=== PATIENT | male | born 1945 | race Caucasian/White ===

== ENCOUNTER 2017-01-24 09:39 | Observation (INO) | payer MEDICARE ==
[~2017-01-24] VITALS: Ht 175.3 cm; Wt 82.8 kg
[~2017-01-24 09:39] MED LIST: HYDR25TA6 PO; METO-407 PO
[2017-01-24] MEDS ORDERED: LISI20TA11 PO (10:32)
[2017-01-24] MEDS ORDERED: LOSA25TA5 PO (10:32)
[2017-01-24] MEDS ORDERED: AMLO5TAB4 PO (10:33)
--- NOTE | 2017-01-24 10:38 | RADRPT ---
PROCEDURE: Chest x-ray CLINICAL INDICATION: Stroke TECHNIQUE: Chest single view COMPARISON: None FINDINGS: There is mild cardiomegaly and an sclerotic aortic calcification. The pulmonary vessels are normal i n caliber. The lungs are clear. The costophrenic angles are sharp. The visualized bony thorax is unremarkable. IMPRESSION: No acute cardiopulmonary disease. Mild cardiomegaly and atherosclerotic aortic calcification. RPTAT: HH .Lewis Murguia MD, MD Date Time Electronically viewed and signed by .Lewis Murguia MD, MD on 01/24/2017 10:38 .W/
[2017-01-24 10:52] LABS: BASOPHIL # 0.1 10^3/ul (0.0-0.1); EOSINOPHILS # 0.2 10^3/ul (0.0-0.5); EOSINOPHILS % 4.5 % (0.0-7.0); HEMATOCRIT 48.9 % (42.0-52.0); HEMOGLOBIN 15.6 g/dl (14.0-18.0); MEAN CORPUSCULAR HEMOGLOBIN 26.6 pg (29.0-33.0); MEAN CORPUSCULAR HGB CONC 31.9 g/dl (32.0-37.0); MEAN CORPUSCULAR VOLUME 83.3 fl (82.0-101.0); MEAN PLATELET VOLUME 10.4 fl (7.4-10.4); MONOCYTE # 0.5 10^3/ul (0.3-0.9); MONOCYTES % 10.4 % (0.0-11.0); NEUTROPHIL # 2.2 10^3/ul (1.6-7.5); NEUTROPHILS % 43.7 % (39.0-77.0); PLATELET COUNT 240 10^3/UL (140-415); RED BLOOD COUNT 5.87 10^6/ul (4.70-6.10); RED CELL DISTRIBUTION WIDTH 13.2 % (11.5-14.5); WHITE BLOOD COUNT 4.9 10^3/ul (4.8-10.8)
[2017-01-24 11:10] LABS: INR 0.93; PROTIME 12.5 Sec (12.2-14.2)
[2017-01-24 11:11] LABS: PARTIAL THROMBOPLASTIN TIME 32.2 Sec (25.0-35.0)
[2017-01-24 11:13] LABS: ALANINE AMINOTRANSFERASE 33 IU/L (13-69); ALBUMIN 4.7 g/dl (3.3-4.9); ALBUMIN/GLOBULIN RATIO 1.51; ALKALINE PHOSPHATASE 98 IU/L (42-121); ANION GAP 14 (8-16); ASPARTATE AMINO TRANSFERASE 27 IU/L (15-46); BILIRUBIN,INDIRECT 0.5 mg/dl (0-1.1); BILIRUBIN,TOTAL 0.5 mg/dl (0.2-1.3); BLOOD UREA NITROGEN 15 mg/dl (7-20); CALCIUM 9.5 mg/dl (8.4-10.2); CARBON DIOXIDE 27 mmol/L (21-31); CHLORIDE 100 mmol/L (97-110); CHOL/HDL RATIO 3.6 RATIO; CHOLESTEROL 193 mg/dl (100-200); CREATININE 0.97 mg/dl (0.61-1.24); GLUCOSE 143 mg/dl (70-220); HDL CHOLESTEROL 53 mg/dl (31-75); POTASSIUM 4.1 mmol/L (3.5-5.1); SODIUM 137 mmol/L (135-144); TOTAL PROTEIN 7.8 g/dl (6.1-8.1); TRIGLYCERIDES 160 mg/dl (0-149)
--- NOTE | 2017-01-24 11:23 | RADRPT ---
PROCEDURE: CT Brain without contrast. CLINICAL INDICATION: Neurological deficit. Possible stroke. Headache, right blurred vision. TECHNIQUE: A CT of the brain was performed on multidetector high-resolution CT scanner utilizing a xial sections from the skull base through the vertex without contrast. The scan was reviewed in sof t tissue brain and high frequency resolution bone algorithm windows. Images were reviewed on a high -resolution PACS workstation. One or more the following does reduction techniques were utilized: Aut omated exposure control, adjustment of the mA/ or kV according to patient's size, or use of iterativ e reconstruction technique. The exam CTDI = 43.58 mGy and the DLP = 630.2 mGy-cm. COMPARISON: Brain CT 07/21/2012. Brain MRI 07/22/2012. FINDINGS: The ventricles and sulci are mildly prominent indicative of volume loss. There is no intracranial h emorrhage, mass effect or midline shift. No abnormal intra-axial or extra-axial fluid collections a re seen. The lira/white matter differentiation is preserved. There are mild scattered foci of hypoattenuation in the white matter, which are nonspecific in etiol ogy but likely reflect chronic small vessel ischemic changes. There are mild intracranial vascular calcifications consistent with atherosclerosis. The visualized paranasal sinuses are essentially desirae ar. IMPRESSION: 1. No acute intracranial hemorrhage, transcortical infarction or mass effect. Please note MRI is mo re sensitive for detection of acute ischemia and can be obtained as clinically warranted. 2. Mild intracranial atherosclerosis and chronic small vessel ischemic changes. 3. Mild generalized cerebral volume loss. RPTAT: UU .Regina Vela MD, MD Date Time Electronically viewed and signed by .Regina Vela MD, MD on 01/24/2017 11:22 .N/
[2017-01-24 11:26] LABS: TROPONIN-I < 0.012 ng/ml (0.00-0.12)
--- NOTE | 2017-01-24 11:48 | ERA ---
ER Documentation Chief Complaint Date/Time DATE: 01/24/17 TIME: 11:45 Chief Complaint mclaughlin, double vision x6 days. hx vague, opthom states stroke, pmd no orders. HPI 71-year-old male presents to the emergency department with his family complaining of double vision, vertiginous dizziness and a headache for the last 6 days. Patient states his last known normal well time was approximately 6 days ago but he does not remember the time. He states he began having vertiginous dizziness and diplopia. He saw his eye doctor because he thought this might be related to a cataract. His eye doctor informed him that this was unlikely to be cataract related and we was concerned about a stroke. He presents here to our emergency department now 6 days into his symptoms. He states he has ongoing diplopia when he looks to the side mostly on the right side. He reports no other focal weakness or numbness. He states his headache is mild to moderate. He reports no nausea or vomiting, fevers or chills. ROS All systems reviewed and are negative except as per history of present illness. Medications Home Meds Reported Medications Amlodipine Besylate* (Norvasc*) 5 Mg Tablet, 5 MG PO DAILY, TAB 01/24/17 Losartan Potassium* (Losartan Potassium*) 25 Mg Tablet, 25 MG PO DAILY, TAB 01/24/17 Lisinopril* (Lisinopril*) 20 Mg Tablet, 20 MG PO DAILY, #30 TAB 01/24/17 Discontinued Reported Medications Hydrochlorothiazide (Hydrochlorothiazide) 25 Mg Tablet, 25 MG PO DAILY 07/21/12 Metoprolol Tartrate* (Lopressor*) 100 Mg Tablet, 100 MG PO DAILY 07/21/12 Allergies Allergies: Coded Allergies: No Known Allergy (Unverified , 01/24/17) PMhx/Soc History of Surgery: No Anesthesia Reaction: No Hx Neurological Disorder: No Hx Respiratory Disorders: No Hx Cardiac Disorders: Yes (HTN) Hx Psychiatric Problems: No Hx Miscellaneous Medical Probl: Yes (glaucoma , arthritis ) Hx Alcohol Use: Yes (35YEARS AGO) Hx Substance Use: No Hx Tobacco Use: No Smoking Status: Never smoker FmHx non-Contributory for chief complaint Physical Exam Vitals Vital Signs Date Time Temp Pulse Resp B/P Pulse Ox O2 Delivery O2 Flow Rate FiO2 01/24/17 10:33 68 15 143/73 97 Room Air 01/24/17 09:44 97.3 79 20 152/77 97 Physical Exam GENERAL: The patient is well developed and appropriate for usual state of health in no apparent distress HEENT: Pupils equal, round, and reactive to light. EOMI. There is no scleral icterus. NECK: C-spine is soft and supple, there is no meningismus. There is no cervical lymphadenopathy. LUNGS: Clear to auscultation bilaterally. There are no rales, wheezes or rhonchi. HEART: Regular rate and rhythm, no murmurs, clicks, rubs or gallops. ABDOMEN: Soft, non-tender, non-distended. There are bowel sounds in all four quadrants. No rebound or guarding. EXTREMITIES: There is no peripheral cyanosis or edema. No focal swelling or erythema. NEURO: Patient is awake, alert, oriented. Normal speech pattern. Normal fluency. No visual field cut deficits. Patient has a peripheral right 4th nerve palsy. Patient has a slightly ataxic finger to nose on the right side. The left side appears normal. The remainder of the cranial nerves as well as motor and sensory examination appeared to be normal. SKIN: There is no apparent rash or petechiae. HEME/LYMPHATIC: There is no evidence of excessive bruising or lymphedema. PSYCHIATRIC: The patient does not appear anxious or depressed. Result Diagram: 01/24/17 1030 01/24/17 1030 Results 24 hrs Laboratory Tests Test 01/24/17 10:30 White Blood Count 4.910^3/ul Red Blood Count 5.8710^6/ul Hemoglobin 15.6g/dl Hematocrit 48.9% Mean Corpuscular Volume 83.3fl Mean Corpuscular Hemoglobin 26.6pg Mean Corpuscular Hemoglobin Concent 31.9g/dl Red Cell Distribution Width 13.2% Platelet Count 33219^3/UL Mean Platelet Volume 10.4fl Neutrophils % 43.7% Lymphocytes % 40.0% Monocytes % 10.4% Eosinophils % 4.5% Basophils % 1.0% Nucleated Red Blood Cells % 0.0/100WBC Neutrophils # 2.210^3/ul Lymphocytes # 2.010^3/ul Monocytes # 0.510^3/ul Eosinophils # 0.210^3/ul Basophils # 0.110^3/ul Nucleated Red Blood Cells # 0.010^3/ul Prothrombin Time 12.5Sec Prothrombin Time Ratio 1.0 INR International Normalized Ratio 0.93 Activated Partial Thromboplast Time 32.2Sec Sodium Level 137mmol/L Potassium Level 4.1mmol/L Chloride Level 100mmol/L Carbon Dioxide Level 27mmol/L Anion Gap 14 Blood Urea Nitrogen 15mg/dl Creatinine 0.97mg/dl Glucose Level 143mg/dl Calcium Level 9.5mg/dl Total Bilirubin 0.5mg/dl Direct Bilirubin 0.00mg/dl Indirect Bilirubin 0.5mg/dl Aspartate Amino Transf (AST/SGOT) 27IU/L Alanine Aminotransferase (ALT/SGPT) 33IU/L Alkaline Phosphatase 98IU/L Troponin I < 0.012ng/ml Total Protein 7.8g/dl Albumin 4.7g/dl Globulin 3.10g/dl Albumin/Globulin Ratio 1.51 Triglycerides Level 160mg/dl Cholesterol Level 193mg/dl LDL Cholesterol, Calculated 108mg/dl HDL Cholesterol 53mg/dl Cholesterol/HDL Ratio 3.6RATIO Current Medications Medications (Trade) Dose Ordered Sig/Brennen Route PRN Reason Start Time Stop Time Status Last Admin Dose Admin Aspirin (Aspirin) 325 mg ONCE ONCE PO 01/24/17 12:00 01/24/17 12:01 01/24/17 11:36 Procedures/MDM Patient was taken to a room, seen and evaluated. Comfort measures were initiated. Diagnostic tests were ordered and reviewed. 3 LEAD RHYTHM STRIP: Normal sinus rhythm without ectopy 12 lead EKG interpreted by myself: Rate/rhythm: Normal sinus rhythm [place]/intervals: Normal Ischemia: Nonspecific ST and T-wave changes with no ST elevation Impression: Nonspecific EKG RADIOLOGY: reviewed with the radiologist CONSULTATION: hospitalist was notified for admission REEVALUATION: Patient remained neurologically unchanged from initial presentation MEDICAL DECISION MAKING: Patient presents with acute neurologic changes concerning for a stroke. Critical care time:> 35 minutes Critical care has included ongoing critical monitoring of neurologic as well as hemodynamic status. Multiple consultations including: Code stroke: Not appropriate given timing Radiology: No hemorrhage TPA: not a candidate as last known well time > 4.5 hours Intravascular decision making: Not appropriate given last known well time greater than 1 day Departure Diagnosis: Primary Impression: Stroke Condition: JACK Onela Jan 24, 2017 11:48
[2017-01-24] MEDS ORDERED: ASPIRIN 325 MG TAB PO ONE (12:00)
[2017-01-24 12:27] LABS: ADD UMIC NO; UR ASCORBIC ACID NEGATIVE (NEGATIVE); UR BILIRUBIN (Dip) NEGATIVE (NEGATIVE); UR BLOOD (Dip) NEGATIVE (NEGATIVE); UR CLARITY CLEAR (CLEAR); UR COLOR YELLOW (YELLOW); UR GLUCOSE (Dip) NEGATIVE (NEGATIVE); UR KETONES (Dip) NEGATIVE (NEGATIVE); UR LEUKOCYTE ESTERASE (Dip) NEGATIVE Leu/ul (NEGATIVE); UR NITRITE (Dip) NEGATIVE (NEGATIVE); UR SPECIFIC GRAVITY (Dip) 1.013 (1.003-1.030); UR TOTAL PROTEIN (Dip) NEGATIVE (NEGATIVE); UR UROBILINOGEN (Dip) NEGATIVE (NEGATIVE)
[2017-01-24 13:00] LABS: BARBITURATES Negative (NEGATIVE); BENZODIAZEPINES Negative (NEGATIVE); COCAINE Negative (NEGATIVE); OPIATES Negative (NEGATIVE)
[2017-01-24 13:27] LABS: CANNABINOIDS Negative (NEGATIVE)
[2017-01-24] MEDS ORDERED: ONDANSETRON 4 MG INJ IV PRN (14:00)
--- NOTE | 2017-01-24 14:37 | RADRPT ---
PROCEDURE: US Carotids. CLINICAL INDICATION: bruit , headache TECHNIQUE: Multiple sonographic of the carotid bifurcation region and vertebral arteries were obta ined utilizing lira scale, duplex and color-flow imaging. The images were reviewed on a PACS worksta tion. COMPARISON: No prior studies are available for comparison. FINDINGS: Evaluation of the right carotid bifurcation region reveals no significant calcific atherosclerotic d isease. Evaluation of the left carotid bifurcation region reveals no significant calcific atherosclerotic di sease. There is antegrade flow within the vertebral arteries bilaterally. RIGHT CAROTID MEASUREMENTS: Common Carotid Drfidq00.9 (cm/sec) Internal Carotid Artery - .9 (cm/sec) Internal Carotid Artery - mid27.1 (cm/sec) Internal Carotid Artery - ysebdq40.6 (cm/sec) Internal Carotid/Common Carotid0.71 LEFT CAROTID MEASUREMENTS: Common Carotid Uknbkw97.1 (cm/sec) Internal Carotid Artery - irydmrcf81.7 (cm/sec) Internal Carotid Artery - mid32 (cm/sec) Internal Carotid Artery - .8 (cm/sec) Internal Carotid/Common Carotid0.77 RPTAT: AA IMPRESSION: No evidence for hemodynamically significant stenosis in the bilateral internal carotid arteries - va lidated velocity measurements with angiographic measurements, velocity criteria are extrapolated fro m diameter data as defined by the Society of Radiologists in Ultrasound Consensus Conference Radiolo gy 2003; 229;340-346. This study does indirectly reference the measurement of the distal ICA diamet er as the denominator for stenosis measurement. Normal antegrade flow in the vertebral arteries bilaterally. .Carlos Eduardo Cannon MD, Date Time Electronically viewed and signed by .Carlos Eduardo Cannon MD, MD on 01/24/2017 14:37 .S/
[2017-01-24 14:54] VITALS: TEMP 98.4
[2017-01-24] MEDS: LISINOPRIL 20 MG TAB PO SCH (15:20)
[2017-01-24] MEDS: AMLODIPINE 5 MG TAB PO SCH (15:20)
[2017-01-24] MEDS: LOSARTAN 25 MG TAB PO SCH (15:21)
--- NOTE | 2017-01-24 16:46 | RADRPT ---
PROCEDURE: MR Brain without contrast. CLINICAL INDICATION: Headaches, nausea. Double vision. TECHNIQUE: An MRI of the brain was performed on a GE short bore 3.0 stefanie scanner utilizing the fo llowing sequences: Sagittal T1 and axial weighted, axial T2 weighted, axial diffusion weighted (EPI technique [id number]) with axial ADC mapping, and axial FLAIR. Additionally, coronal GRE and axial T2 thin-slice images through the brainstem sequences were performed. COMPARISON: Head CT 01/24/2017 and MRI brain 07/22/2012. FINDINGS: No diffusion weighted abnormalities are seen to suggest the presence of acute ischemia or recent inf arct. No GRE susceptibility artifact is evident to suggest the presence of blood degradation produc ts. There is no intracranial hemorrhage, mass effect, or midline shift. No extra-axial fluid colle ction is seen. There is mild generalized age appropriate volume loss. A few scattered small foci o f increased T2 weighted/FLAIR signal intensity are seen in the primarily in the deep white matter, n onspecific in appearance. The signal intensity is normal throughout the brainstem and cerebellum. Normal flow voids are visible the proximal and cranial arteries and dural sinuses, indicating patenc y. There is a small hemangioma in the left parietal bone. Small mucous retention cyst versus polyp are seen in the right maxillary sinus. IMPRESSION: 1. No evidence of acute infarct. 2. A few scattered foci of increased T2 weighted/FLAIR signal intensity seen primarily in the deep white matter, nonspecific in appearance though perhaps reflective of complicated migraines, hyperten sive microvascular ischemic disease, or sequela from prior traumatic or inflammatory insults. RPTAT: BB .Arie Weinstein MD, Date Time Electronically viewed and signed by .Arie Weinstein MD, MD on 01/24/2017 16:46 .O/
[2017-01-24] MEDS: ACETAMINOPHEN 325 MG TAB PO PRN ×2 (19:28→23:06)
[2017-01-24 20:04] VITALS: Ht 175.3 cm; Wt 82.8 kg
[2017-01-24 20:10] VITALS: PULSE 85
[2017-01-24 20:19] VITALS: BP 160/78; RESP 19
[2017-01-24] MEDS: MECLIZINE 25 MG TAB PO SCH (21:05)
--- NOTE | 2017-01-24 21:10 | HP ---
DATE OF ADMISSION: 01/24/2017 CHIEF COMPLAINT: "I have been dizzy and have double vision on my right side." HISTORY OF PRESENT ILLNESS: The patient is a very pleasant, 71- year-old, male, who presents to the Emergency Department with a 1-day history of dizziness and double vision on the right side of his face. He has a history of hypertension and was in his usual state of health approximately 3-4 days ago. He presented to his primary care physician with the chief complaint of dizziness and double vision. He was referred to an cigarette book maker. The cigarette book maker stated that his double vision is not from an issue with his eyes, and recommended he go to the Emergency Department for further evaluation treatment. In the Emergency Department, the patient had the aforementioned symptoms and underwent a CT scan of the brain which revealed no acute intracranial hemorrhage, transcortical infarction or mass effect. He had mild intracranial atherosclerosis and chronic small vessel ischemic changes, as well as mild generalized cerebral volume loss. The patient also was able to have an MRI in the ER that revealed no evidence of acute infarct and diffuse scattered foci of increased T2 weighted FLAIR in signal intensity seen primarily deep white matter, nonspecific in appearance or perhaps reflective of complicated migraines, hypertensive microvascular ischemic disease, or sequelae from prior traumatic or inflammatory insult. Of note, the patient denies any prior traumatic or inflammatory insult. The patient's daughter was at the bedside and translated during the interview of history of present illness. The patient has no other deficits whatsoever, other than his dizziness and double vision. He has no focal, motor, or sensory weakness that he complained of. He was placed on the telemetry unit for observation and management. ALLERGIES: NO KNOWN DRUG ALLERGIES. MEDICATIONS: 1. Norvasc 5 mg once a day. 2. Losartan 25 mg once daily. 3. Ibuprofen 600 mg 3 times a day. 4. Lisinopril 40 mg in the morning and 20 mg at bedtime. PAST SURGICAL HISTORY: The patient has had a blepharoplasty surgery approximately 2-3 months ago. PAST MEDICAL HISTORY: Hypertension, osteoarthritis, and cataracts. FAMILY HISTORY: Essentially noncontributory. SOCIAL HISTORY: The patient lives in the [facility] with his family. He denies alcohol and tobacco use. REVIEW OF SYSTEMS: Negative except as stated in the history of present illness. PHYSICAL EXAMINATION: VITAL SIGNS: Current blood pressure is elevated 157/88, pulse rate of 62, respiratory rate of 17. Oxygen saturation is 98 percent on room air. His temperature is 98.4. HEENT: Normocephalic, atraumatic. Extraocular intact. His pupils are equal, round, react to light and accommodation. Oropharynx was clear. No JVD was noted. No thyromegaly was noted. CARDIOVASCULAR: Regular rate and rhythm without appreciable murmurs, rubs, or gallops. LUNGS: His lungs are clear to auscultation bilaterally without rales, rhonchi. No rales, rhonchi, or crackles. ABDOMEN: Abdomen is soft, nontender, nondistended. Normal active bowel sounds present all 4 quadrants. EXTREMITIES: No clubbing, cyanosis, or edema. NEUROLOGIC: He is alert, oriented x4. Cranial II-XII grossly intact. Strength and sensation is grossly intact. No focal deficits were noted in his upper or lower extremities. He did, however, have diplopia on the right visual field. He did not have difficulty in the left visual field. With each eye a covered, the patient did not exhibit double vision the right hemisphere. This only occurred when both eyes were focusing on the right hemispheric/visual field. His [id number] is intact and gait was not tested. LABORATORY: White count is 4.9, hemoglobin 15.6, hematocrit of 48.9, platelet count of 240,000. Potassium was 4.1, chloride 100, sodium 137, bicarb 27, anion gap 14, BUN 15, creatinine 0.7, glucose 143, hemoglobin A1c 5.8, calcium 9.5, bilirubin 0.5, AST 27, ALT 33, alkaline phosphatase 98. Troponin less than 0.012. Total protein 7.8, albumin 4.7, globulin 3.1, triglycerides mildly elevated at 168, cholesterol 193, HDL 53, LDL 108, and cholesterol to HDL ratio was 3.69. Toxicology screen negative. UA negative, with specific gravity 1.013. PT 12.5, INR 0.93, PTT 32.2. IMAGING: Chest x-ray revealed mild aortic atherosclerosis and cardiomegaly with no acute cardiopulmonary disease. IMPRESSION: The patient is a very pleasant 71-year-old gentleman who presents with dizziness and difficulty in the right visual field. This has been going on for a few days. He presented to the Emergency Department with the aforementioned symptoms and was placed on aspirin. Dr. Ross has been consulted, and he will evaluate the patient in consultation. At this point the patient will also get a carotid duplex, 2D echocardiogram as well as possible CT angiogram of the brain. This will help evaluate for chronic small vessel disease. I doubt this is an embolic event. However, we will monitor patient on telemetry for arrhythmias as well as other reasons for his symptoms. I will give her meclizine for his dizziness and restart his medications to achieve better blood pressure control. Further treatment recommendations will made based on the patient's symptomology. Dictated By: Meir Ramos MD /antoine/aimee /Document#: [id number]
[2017-01-24 23:53] VITALS: BP 135/75; RESP 20
[2017-01-25] VITALS (12 sets, daily range): BP systolic 121–136; BP diastolic 70–80; PULSE 58–89; RESP 16–19
[2017-01-25] MEDS: AMLODIPINE 5 MG TAB PO SCH (08:15)
[2017-01-25] MEDS: ASPIRIN (EC) 325 MG TAB PO SCH (08:15)
[2017-01-25] MEDS: MECLIZINE 25 MG TAB PO SCH ×3 (08:15→20:53)
[2017-01-25] MEDS: LOSARTAN 25 MG TAB PO SCH (08:15)
[2017-01-25] MEDS: LISINOPRIL 20 MG TAB PO SCH (08:15)
--- NOTE | 2017-01-25 11:56 | CONS ---
Date/Time of Note Date/Time of Note DATE: 01/25/17 TIME: 11:48 Assessment/Plan Assessment/Plan Chief Complaint/Hosp Course 71 year old male with history of HTN, HLD, DM p/w double vision for over 1 day headache, dizziness. MRI Brain negative for acute process shows chronic microvascular changes. Exam suggestive of Right palsy. possible MRI negative brainstem stroke involving lillie. Recommendations: repeat MRI Brain w/o contrast MRA Head w/o contrast carotid duplex is negative HBA1C 5.8% under control LDL: 108 started Lipitor 40 mg qhs continue ASA daily baseline ECHO Meclizine for vertigo PT/OT/Speech eval will follow Problems: Consultation Date/Type/Reason Admit Date/Time Jan 24, 2017 at 13:35 Date of Consultation: Jan 24, 2017 Type of Consultation: Neurology Reason for Consultation eval for CVA Referring Provider: CORBY LEA Hx of Present Illness 71 year old male with history of HTN, HLD, DM, vertigo p/w dizziness and double vision involving the right visual field for the past day. He had seen an moth exterminator for eval suggested he come to the ER for further evaluation. CTH showed mild intracranial athero, chronic small vessel changes. MRI Brain with scattered foci T2 FLAIR changes. He c/o also of headache right side of his head, no facial weakness no dysarthria, no focal weakness in arms or legs. dizziness blurred vision right side of his vision headache Past Medical History per HPI Social History Smoking Status: Never smoker Exam/Review of Systems Vital Signs Vitals Vital Signs Date Time Temp Pulse Resp B/P Pulse Ox O2 Delivery O2 Flow Rate FiO2 01/25/17 11:33 97.7 66 16 124/70 94 01/24/17 19:29 Room Air Intake and Output 01/24/17 01/24/17 01/25/17 14:59 22:59 06:59 Intake Total 480 ml Balance 480 ml Exam awake and alert oriented to self hospital follows all commands no aphasia CN: vision intact no visual field cuts, unable to completely abduct right eye fully on right lateral gaze Right nerve palsy present c/o double vision, no facial asymmetry palate upgoing uvula midline scm/trap intact Motor: 5/5 throughout UE and LE Sensory intact throughout Coordination no ataxia Reflexes 2+ throughout toes down Results Result Diagram: 01/24/17 1030 01/24/17 1030 Results 24 hrs Laboratory Tests Test 01/24/17 11:50 Urine Color YELLOW Urine Clarity CLEAR Urine pH 7.0 Urine Specific [place] 1.013 Urine Ketones NEGATIVE Urine Nitrite NEGATIVE Urine Bilirubin NEGATIVE Urine Urobilinogen NEGATIVE Urine Leukocyte Esterase NEGATIVE Urine Hemoglobin NEGATIVE Urine Glucose NEGATIVE Urine Total Protein NEGATIVE Urine Opiates Screen Negative Urine Barbiturates Negative Urine Amphetamines Screen Negative Urine Benzodiazepines Screen Negative Urine Cocaine Screen Negative Urine Cannabinoids Negative Medications Medications Current Medications Ondansetron HCl (Zofran Inj) 4 mg Q6H PRN IV NAUSEA AND/OR VOMITING; Start at 14:00 Acetaminophen (Tylenol Tab) 650 mg Q4 PRN PO HEADACHE Last administered on 01/24 23:06; Admin Dose 650 MG; Start 01/24/17 at 14:00 Aspirin (Ecotrin) 325 mg DAILY PO Last administered on 01/25/17 08:15; Admin Dose 325 MG; Start 01/25/17 at 09:00 Amlodipine Besylate (Norvasc) 5 mg DAILY PO Last administered on 01/25/17 08: 15; Admin Dose 5 MG; Start 01/24/17 at 14:00 Lisinopril (Zestril) 20 mg DAILY PO Last administered on 01/25/17 08:15; Admin Dose 20 MG; Start 01/24/17 at 14:00 Losartan Potassium (Cozaar) 25 mg DAILY PO Last administered on 01/25/17 08:15 ; Admin Dose 25 MG; Start 01/24/17 at 14:00 Meclizine HCl (Antivert) 25 mg TID PO Last administered on 01/25/17 08:15; Admin Dose 25 MG; Start 01/24/17 at 21:00 NERIS LYONS MD Jan 25, 2017 11:56
--- NOTE | 2017-01-25 13:59 | PN ---
Date/Time of Note Date/Time of Note DATE: 01/25/17 TIME: 13:53 Assessment/Plan VTE Prophylaxis VTE Prophylaxis Intervention: ambulation, SCD's Lines/Catheters IV Catheter Type (from Nrsg): Saline Lock Assessment/Plan Assessment/Plan 71-year-old male with: 1. Blurry vision, headache and dizziness 24 hours, patient reports that his symptoms are improving with less dizziness and headache however he still has diplopia/blurred vision. Appreciate recommendations from neurology, patient seems to have cranial nerve palsy. Repeat MRI pending, on aspirin, blood pressure medication and statin. 2. Hypertension: Home meds resumed, monitor blood pressure. 3. Hyperlipidemia: She had to be started on statin therapy in setting of TIA versus CVA Prophylaxis: Tolerating p.o. and ambulatory. Disposition: Repeat MRI brain today, discharge planning the next 24 hours depending on neurology recommendations and findings. PT eval to complete stroke protocol. Subjective 24 Hr Interval Summary Free Text/Dictation Patient reports less dizziness and less headache however blurry vision and diplopia still ongoing. Repeat MRI brain pending Appreciate recommendations from Dr. Thomas. Exam/Review of Systems Vital Signs Vitals Vital Signs Date Time Temp Pulse Resp B/P Pulse Ox O2 Delivery O2 Flow Rate FiO2 01/25/17 12:17 62 01/25/17 11:33 97.7 16 124/70 94 01/24/17 19:29 Room Air Intake and Output 01/24/17 01/24/17 01/25/17 15:00 23:00 07:00 Intake Total 480 ml Balance 480 ml Exam Constitutional: alert, oriented, well developed Eyes: PERRL, nl sclera, other (Cranial nerve palsy) Respiratory: clear to auscultation, normal air movement Cardiovascular: nl pulses, regular rate and rhythm Gastrointestinal: non-tender, soft Musculoskeletal: nl extremities to inspection Extremities: normal pulses, other (No edema, clubbing or cyanosis) Neurological: nl mental status, nl speech, nl strength, other (Cranial nerve palsy) Results Result Diagram: 01/24/17 1030 01/24/17 1030 Medications Medications Current Medications Ondansetron HCl (Zofran Inj) 4 mg Q6H PRN IV NAUSEA AND/OR VOMITING; Start at 14:00 Acetaminophen (Tylenol Tab) 650 mg Q4 PRN PO HEADACHE Last administered on 01/24 23:06; Admin Dose 650 MG; Start 01/24/17 at 14:00 Aspirin (Ecotrin) 325 mg DAILY PO Last administered on 01/25/17 08:15; Admin Dose 325 MG; Start 01/25/17 at 09:00 Amlodipine Besylate (Norvasc) 5 mg DAILY PO Last administered on 01/25/17 08: 15; Admin Dose 5 MG; Start 01/24/17 at 14:00 Lisinopril (Zestril) 20 mg DAILY PO Last administered on 01/25/17 08:15; Admin Dose 20 MG; Start 01/24/17 at 14:00 Losartan Potassium (Cozaar) 25 mg DAILY PO Last administered on 01/25/17 08:15 ; Admin Dose 25 MG; Start 01/24/17 at 14:00 Meclizine HCl (Antivert) 25 mg TID PO Last administered on 01/25/17 12:44; Admin Dose 25 MG; Start 01/24/17 at 21:00 Atorvastatin Calcium (Lipitor) 40 mg HS PO ; Start 01/25/17 at 21:00 CORBY LEA Jan 25, 2017 13:59
[2017-01-25] MEDS: ACETAMINOPHEN 325 MG TAB PO PRN (20:53)
[2017-01-25] MEDS ORDERED: ZOLPIDEM 5 MG TAB PO PRN (21:00)
[2017-01-25] MEDS ORDERED: ATORVASTATIN 40 MG TAB PO SCH (21:00)
[2017-01-25] MEDS ORDERED: ARTIFICIAL TEARS 15 ML OPH BOTH EYES PRN (21:00)
--- NOTE | 2017-01-25 22:05 | RADRPT ---
PROCEDURE: MRI Brain without contrast. CLINICAL INDICATION: Neurological deficit, dizziness, double vision. TECHNIQUE: An MRI of the brain was performed utilizing the following sequences: Sagittal and axial T1 weighted, axial T2 weighted, axial diffusion weighted with ADC mapping, coronal GRE, and axial F LAIR. COMPARISON: Brain MRI 12/13/2016. FINDINGS: No diffusion weighted abnormalities are seen to suggest the presence of acute ischemia or recent inf arct. No hypointense signal abnormalities are seen on the GRE images to suggest the presence of blo od degradation products. There is no evidence of intracranial hemorrhage, mass effect, or midline s hift. No extra-axial fluid collections are seen. The ventricles and sulci are mildly enlarged indica tive of volume loss. There are minimal scattered foci of T2 FLAIR hyperintensity in the periventricular, deep, and subcor tical white matter, which are nonspecific in etiology but likely reflect chronic small vessel ischem ic changes. Small old lacunar infarcts are noted in bilateral thalami and left lentiform nucleus. No abnormal intracranial vascular flow void is noted. The visualized paranasal sinuses demonstrate s mall probable mucous retention cysts in bilateral maxillary sinuses, otherwise mild scattered mucosa l thickening. IMPRESSION: 1. No acute intracranial hemorrhage, infarction or mass. 2. Minimal chronic small vessel ischemic changes. 3. Small old lacunar infarcts are noted in bilateral thalami and left lentiform nucleus. 4. Mild generalized cerebral volume loss. RPTAT: HFN .Regina Vela MD, MD Date Time Electronically viewed and signed by .Regina Vela MD, MD on 01/25/2017 22:05 .N/
--- NOTE | 2017-01-25 22:14 | RADRPT ---
PROCEDURE: MRA Brain. CLINICAL INDICATION: Neurological deficit, dizziness, double vision. TECHNIQUE: An MRA of the brain was performed without intravenous contrast utilizing the following sequences: 3-D [id number] images through the intracranial vasculature with post processed ly l intensity projections in multiple planes. COMPARISON: Concurrent MRI of the brain. FINDINGS: The petrous, cavernous, and supraclinoid internal carotid artery segments are patent without evidenc e of significant stenosis. The proximal anterior cerebral and middle cerebral arteries are patent wi thout significant stenosis. There is predominant origin of bilateral posterior cerebral arter ies with hypoplastic bilateral P1 segments. The left intradural vertebral artery is small in calibe r and terminates as PICA, likely hypoplastic. The right intradural vertebral artery, basilar artery and posterior cerebral arteries demonstrate mild irregularity and narrowing. No aneurysms are identi fied. IMPRESSION: 1. The left intradural vertebral artery is small in caliber, likely hypoplastic. 2. Mild narrowing of the right intradural vertebral artery, basilar artery and posterior cerebral a rteries. 3. Otherwise no significant stenosis of the remainder of major intracranial arteries. RPTAT: HFN .Regina Vela MD, MD Date Time Electronically viewed and signed by .Regina Vela MD, MD on 01/25/2017 22:13 .N/
[2017-01-26] VITALS (7 sets, daily range): BP systolic 127–132; BP diastolic 71–76; PULSE 57–74; RESP 18–19
--- NOTE | 2017-01-26 08:26 | RADRPT ---
Echocardiogram Report Patient Name: AURORA YADAV Gender: Male Date: 1945 Study Date: 25-Jan-2017 [employer] Barge Mounted: Zoila [facility] Location: 518-A Ref. Physician: JOVI ALLEN Quality: Adequate Procedures: Transthoracic echocardiogram with complete 2D, M-Mode, and doppler examination. Indications: TIA. 2D/M Mode Doppler Measurement Value Normal Ranges Measurement Value Normal Ranges LVIDd 2D 4.7 3.5 - 5.6 cm AV Peak Donny 1.3 m/sec LVIDs 2D 2.9 2.1 - 4.1 cm AV Peak PG 6.0 mmHg FS 2D 38.0 % AI Peak PG 20.0 mmHg LVPWd 2D 1.3 0.6 - 1.1 cm AI Peak Donny 2.3 m/sec IVSd 2D 1.3 0.6 - 1.1 cm AI PHT 895.0 msec IVS/LVPW 2D 1.0 LVOT Peak Donny 1.2 m/sec AoR Diam 2D 3.0 2.0 - 3.7 cm LVOT Peak PG 6.0 mmHg LA/Ao 2D 1 0 - 1 MV E Peak Donny 0.7 m/sec EDV 2D 104.0 cm3 MV A Peak Donny 0.9 m/sec ESV 2D 24.9 cm3 MV E/A 0.8 LA Dimen 2D 3.8 2.3 - 4.0 cm MV Decel Time 254 msec MV E/A 0.8 TR Peak Donny 2.1 m/sec TR Peak PG 18.0 mmHg RVSP 21.0 mmHg Findings Left Ventricle: Hyperdynamic left ventricular systolic function. Normal left ventricular cavity size. Mild concentric left ventricular hypertrophy. Ejection fraction is visually estimated at 70 %. Tissue Doppler/Mitral Doppler indices are consistent with impaired relaxation (Stage I diastolic dysfunction). Right Ventricle: Normal right ventricular size. Normal right ventricular systolic function. Left Atrium: The left atrium is normal in size. Right Atrium: The right atrium is normal in size. Mitral Valve: Mild mitral leaflet calcification. Mild mitral annular calcification. Trace mitral regurgitation. Aortic Valve: Aortic sclerosis without stenosis. Mild aortic valve regurgitation. Tricuspid Valve: Normal appearance of the tricuspid valve. Estimated peak PA systolic pressure 21 mmHg. There is trace tricuspid regurgitation. Pulmonic Valve: Normal pulmonic valve appearance. There is trace pulmonic regurgitation. Pericardium: Normal pericardium with no significant pericardial effusion. Aorta: Normal aortic root. IVC: Normal size and normal respiratory collapse consistent with normal right atrial pressure. Conclusions 1.Hyperdynamic left ventricular systolic function. Normal left ventricular cavity size. Mild concentric left ventricular hypertrophy. Ejection fraction is visually estimated at 70 %. Tissue Doppler/Mitral Doppler indices are consistent with impaired relaxation (Stage I diastolic dysfunction). 2.Mild mitral leaflet calcification. Mild mitral annular calcification. Trace mitral regurgitation. 3.Aortic sclerosis without stenosis. Mild aortic valve regurgitation. 4.Normal appearance of the tricuspid valve. Estimated peak PA systolic pressure 21 mmHg. There is trace tricuspid regurgitation. 5.Normal pulmonic valve appearance. There is trace pulmonic regurgitation. 6.Normal pericardium with no significant pericardial effusion. Electronically Signed By: Chrystal Layne 26-Jan-2017 08:26:04 -0700 Patient Name: AURORA YADAV Study Date: 25-Jan-2017 [id number]
[2017-01-26] MEDS: AMLODIPINE 5 MG TAB PO SCH (09:06)
[2017-01-26] MEDS: LOSARTAN 25 MG TAB PO SCH (09:07)
[2017-01-26] MEDS: ASPIRIN (EC) 325 MG TAB PO SCH (09:07)
[2017-01-26] MEDS: MECLIZINE 25 MG TAB PO SCH ×2 (09:07→13:28)
[2017-01-26] MEDS: LISINOPRIL 20 MG TAB PO SCH (09:07)
[2017-01-26] MEDS: ACETAMINOPHEN 325 MG TAB PO PRN (09:11)
--- NOTE | 2017-01-26 11:02 | PN ---
Date/Time of Note Date/Time of Note DATE: 01/26/17 TIME: 11:00 Assessment/Plan VTE Prophylaxis VTE Prophylaxis Intervention: ambulation, SCD's Lines/Catheters IV C[facility]ter Type (from [facility] Saline Lock Assessment/Plan Assessment/Plan 71-year-old male with: 1. Blurry vision, headache and dizziness 24 hours prior to admission. Patient reports that his symptoms are improving with less dizziness and headache however he still has diplopia/blurred vision. Appreciate recommendations from neurology, patient seems to have cranial nerve palsy. Repeat MRI showing NO acute lesions, on aspirin, blood pressure medication and statin. Discharge home if okay with neurology, patient to use a right eye patch, he will be referred to ophthalmology also. 2. Hypertension: Home meds resumed, monitor blood pressure. 3. Hyperlipidemia: Continue statin therapy Prophylaxis: Tolerating p.o. and ambulatory. Disposition: Discharge home today if okay with neurology, outpatient referral to ophthalmology. Outpatient neurology follow-up if needed Subjective 24 Hr Interval Summary Free Text/Dictation Patient is doing okay, remains stable, he does have right cranial nerve palsy is still having diplopia with some headache and dizziness especially when using his right eye. I have requested for a right eye patch and the patient should have one for comfort. Will refer him to an operations vocational instructor, discharge plan is for today if okay with neurology Exam/Review of Systems Vital Signs Vitals Vital Signs Date Time Temp Pulse Resp B/P Pulse Ox O2 Delivery O2 Flow Rate FiO2 01/26/17 08:25 57 01/26/17 07:41 98.0 18 131/73 98 01/24/17 19:29 Room Air Intake and Output 01/25/17 01/25/17 01/26/17 15:00 23:00 07:00 Intake Total 800 ml 720 ml Balance 800 ml 720 ml Exam Constitutional: alert, oriented, well developed Psych: no complaints Head: normocephalic Eyes: other (Right Cranial nerves palsy) Respiratory: clear to auscultation, normal air movement Cardiovascular: nl pulses, regular rate and rhythm Gastrointestinal: non-tender, soft Musculoskeletal: nl extremities to inspection, nl gait and stance Extremities: normal pulses Neurological: nl mental status, nl speech, nl strength, other (Right cranial nerve palsy) Results Result Diagram: 01/24/17 1030 01/24/17 1030 Medications Medications Current Medications Ondansetron HCl (Zofran Inj) 4 mg Q6H PRN IV NAUSEA AND/OR VOMITING; Start at 14:00 Acetaminophen (Tylenol Tab) 650 mg Q4 PRN PO HEADACHE Last administered on 01/26 09:11; Admin Dose 650 MG; Start 01/24/17 at 14:00 Aspirin (Ecotrin) 325 mg DAILY PO Last administered on 01/26/17 09:07; Admin Dose 325 MG; Start 01/25/17 at 09:00 Amlodipine Besylate (Norvasc) 5 mg DAILY PO Last administered on 01/26/17 09: 06; Admin Dose 5 MG; Start 01/24/17 at 14:00 Lisinopril (Zestril) 20 mg DAILY PO Last administered on 01/26/17 09:07; Admin Dose 20 MG; Start 01/24/17 at 14:00 Losartan Potassium (Cozaar) 25 mg DAILY PO Last administered on 01/26/17 09:07 ; Admin Dose 25 MG; Start 01/24/17 at 14:00 Meclizine HCl (Antivert) 25 mg TID PO Last administered on 01/26/17 09:07; Admin Dose 25 MG; Start 01/24/17 at 21:00 Atorvastatin Calcium (Lipitor) 40 mg HS PO Last administered on 01/25/17 20:53 ; Admin Dose 40 MG; Start 01/25/17 at 21:00 Zolpidem Tartrate (Ambien) 5 mg HS PRN PO INSOMNIA Last administered on 21:45; Admin Dose 5 MG; Start 01/25/17 at 21:00 Eye Lubricant (Artificial Tears Oph) 2 drop Q6H PRN BOTH EYES DRY EYES Last administered on 01/25/17 22:28; Admin Dose 2 DROP; Start 01/25/17 at 21:00 Procedures Procedures PROCEDURE: MRA Brain. CLINICAL INDICATION: Neurological deficit, dizziness, double vision. TECHNIQUE: An MRA of the brain was performed without intravenous contrast utilizing the following sequences: 3-D [id number] images through the intracranial vasculature with post processed maximal intensity projections in multiple planes. COMPARISON: Concurrent MRI of the brain. FINDINGS: The petrous, cavernous, and supraclinoid internal carotid artery segments are patent without evidence of significant stenosis. The proximal anterior cerebral and middle cerebral arteries are patent without significant stenosis. There is predominant origin of bilateral posterior cerebral arteries with hypoplastic bilateral P1 segments. The left intradural vertebral artery is small in caliber and terminates as PICA, likely hypoplastic. The right intradural vertebral artery, basilar artery and posterior cerebral arteries demonstrate mild irregularity and narrowing. No aneurysms are identified. IMPRESSION: 1. The left intradural vertebral artery is small in caliber, likely hypoplastic. 2. Mild narrowing of the right intradural vertebral artery, basilar artery and posterior cerebral arteries. 3. Otherwise no significant stenosis of the remainder of major intracranial arteries. RPTAT: HFN .Regina Vela MD, MD Date Time Electronically viewed and signed by .Regina Vela MD, on 01/25/2017 22: 13 PROCEDURE: MRI Brain without contrast. CLINICAL INDICATION: Neurological deficit, dizziness, double vision. TECHNIQUE: An MRI of the brain was performed utilizing the following sequences : Sagittal and axial T1 weighted, axial T2 weighted, axial diffusion weighted with ADC mapping, coronal GRE, and axial FLAIR. COMPARISON: Brain MRI 12/13/2016. FINDINGS: No diffusion weighted abnormalities are seen to suggest the presence of acute ischemia or recent infarct. No hypointense signal abnormalities are seen on the GRE images to suggest the presence of blood degradation products. There is no evidence of intracranial hemorrhage, mass effect, or midline shift. No extra- axial fluid collections are seen. The ventricles and sulci are mildly enlarged indicative of volume loss. There are minimal scattered foci of T2 FLAIR hyperintensity in the periventricular, deep, and subcortical white matter, which are nonspecific in etiology but likely reflect chronic small vessel ischemic changes. Small old lacunar infarcts are noted in bilateral thalami and left lentiform nucleus. No abnormal intracranial vascular flow void is noted. The visualized paranasal sinuses demonstrate small probable mucous retention cysts in bilateral maxillary sinuses, otherwise mild scattered mucosal thickening. IMPRESSION: 1. No acute intracranial hemorrhage, infarction or mass. 2. Minimal chronic small vessel ischemic changes. 3. Small old lacunar infarcts are noted in bilateral thalami and left lentiform nucleus. 4. Mild generalized cerebral volume loss. RPTAT: HFN .Regina Vela MD, Date Time Electronically viewed and signed by .Regina Vela MD, on 01/25/2017 22:05 CORBY LEA Jan 26, 2017 11:02
--- NOTE | 2017-01-26 11:28 | PDOCDIS ---
Discharge Instructions CONDITION Patient Condition: Stable HOME CARE INSTRUCTIONS: Special Diet: Low Cholesterol, Low Sodium ACTIVITY: Activity Restrictions: Slowly Increase Activity FOLLOW UP/APPOINTMENTS Follow-up Plan Follow-up with primary care physician within 1 week Referral to ophthalmology as an outpatient within 1-2 weeks We will up with neurology as an outpatient within 1-2 weeks OTHER ORDERS: Other Orders: Patient where a right eye patch until right cranial nerve IV palsy resolved. CORBY LEA Jan 26, 2017 11:28
[2017-01-26] MEDS ORDERED: MECL-77 PO (11:31)
[2017-01-26] MEDS ORDERED: ASPI-664 PO (11:31)
[2017-01-26] MEDS ORDERED: ATOR40TA68 PO (11:31)
--- NOTE | 2017-01-26 13:12 | CONS ---
Date/Time of Note Date/Time of Note DATE: 01/26/17 TIME: 12:57 Assessment/Plan Assessment/Plan Chief Complaint/Hosp Course Dizziness, Double vision Problems: Additional Assessment/Plan 71 year old male with history of HTN, HLD, DM p/w double vision for over 1 day headache, dizziness. MRI of brain showed old lacunar infarcts in bilateral thalami and left lenticular nucleus, nothing acute. Exam suggestive of Right palsy. Recommendations: carotid duplex is negative HBA1C 5.8% under control LDL: 108 started Lipitor 40 mg qhs continue ASA daily baseline ECHO Meclizine for vertigo PT/OT/Speech eval OK to DC home and follow up as out patient Opthalmology evaluation as outpatient Consultation Date/Type/Reason Admit Date/Time Jan 24, 2017 at 13:35 Initial Consult Date 01/24/17 Type of Consultation: Neurology Referring Provider: CORBY LEA 24 HR Interval Summary Free Text/Dictation Still has diplopia. MRI of brain showed old lacunar infarcts in bilateral Thalami and left lenticular nucleus. MRI of brain showed atherosclerotic disease otherwise unremarkable. Exam/Review of Systems Vital Signs Vitals Vital Signs Date Time Temp Pulse Resp B/P Pulse Ox O2 Delivery O2 Flow Rate FiO2 01/26/17 12:23 98.0 70 18 132/71 98 01/24/17 19:29 Room Air Intake and Output 01/25/17 01/25/17 01/26/17 15:00 23:00 07:00 Intake Total 800 ml 720 ml Balance 800 ml 720 ml Exam Constitutional: alert, oriented Psych: nl mood/affect, no complaints Head: atraumatic, normocephalic Eyes: EOMI, nl conjunctiva, nl lids, nl sclera, other (Diplopia) ENMT: mucosa pink and moist, nl external ears & nose, nl lips & teeth, nl nasal mucosa & septum Neck: non-tender, supple Respiratory: clear to auscultation, normal air movement Cardiovascular: nl pulses, regular rate and rhythm Gastrointestinal: nl liver, spleen, non-tender, soft Musculoskeletal: nl extremities to inspection Extremities: normal pulses Neurological: nl mental status, nl speech, nl strength, other (right 6th cranial nerve palsy) Skin: nl turgor, rash or lesions Lymph: nl lymph nodes Results Result Diagram: 01/24/17 1030 01/24/17 1030 Medications Medications Current Medications Ondansetron HCl (Zofran Inj) 4 mg Q6H PRN IV NAUSEA AND/OR VOMITING; Start at 14:00 Acetaminophen (Tylenol Tab) 650 mg Q4 PRN PO HEADACHE Last administered on 01/26 09:11; Admin Dose 650 MG; Start 01/24/17 at 14:00 Aspirin (Ecotrin) 325 mg DAILY PO Last administered on 01/26/17 09:07; Admin Dose 325 MG; Start 01/25/17 at 09:00 Amlodipine Besylate (Norvasc) 5 mg DAILY PO Last administered on 01/26/17 09: 06; Admin Dose 5 MG; Start 01/24/17 at 14:00 Lisinopril (Zestril) 20 mg DAILY PO Last administered on 01/26/17 09:07; Admin Dose 20 MG; Start 01/24/17 at 14:00 Losartan Potassium (Cozaar) 25 mg DAILY PO Last administered on 01/26/17 09:07 ; Admin Dose 25 MG; Start 01/24/17 at 14:00 Meclizine HCl (Antivert) 25 mg TID PO Last administered on 01/26/17 09:07; Admin Dose 25 MG; Start 01/24/17 at 21:00 Atorvastatin Calcium (Lipitor) 40 mg HS PO Last administered on 01/25/17 20:53 ; Admin Dose 40 MG; Start 01/25/17 at 21:00 Zolpidem Tartrate (Ambien) 5 mg HS PRN PO INSOMNIA Last administered on 21:45; Admin Dose 5 MG; Start 01/25/17 at 21:00 Eye Lubricant (Artificial Tears Oph) 2 drop Q6H PRN BOTH EYES DRY EYES Last administered on 01/25/17 22:28; Admin Dose 2 DROP; Start 01/25/17 at 21:00 Procedures Procedures 01/25/17 MRA of head IMPRESSION: 1. The left intradural vertebral artery is small in caliber, likely hypoplastic. 2. Mild narrowing of the right intradural vertebral artery, basilar artery and posterior cerebral arteries. 3. Otherwise no significant stenosis of the remainder of major intracranial arteries. RPTAT: HFN .Regina Vela MD, MD Date Time Electronically viewed and signed by .Regina Vela MD, MD on 01/25/2017 22: 13 MRI of brain 01/25/17 IMPRESSION: 1. No acute intracranial hemorrhage, infarction or mass. 2. Minimal chronic small vessel ischemic changes. 3. Small old lacunar infarcts are noted in bilateral thalami and left lentiform nucleus. 4. Mild generalized cerebral volume loss. RPTAT: HFN .Regina Vela MD, MD Date Time Electronically viewed and signed by .Regina Vela MD, MD on 01/25/2017 22: 05 01/25/17 MRA of brain JAMIE RANDOLPH MD Jan 26, 2017 13:09
== END 2017-01-26 15:19 | disposition home or self-care (01) ==
LOC: E/R 09:39 → INTOOBSV 13:35 → TEL 13:35
PROVIDERS: ADMIT Internal Medicine; ATTEND Internal Medicine
DX: H53.8 Other visual disturbances (principal); R51 Headache; R42 Dizziness and giddiness; H53.2 Diplopia; I10 Essential (primary) hypertension; E78.5 Hyperlipidemia, unspecified; M19.90 Unspecified osteoarthritis, unspecified site
CPT/HCPCS: 36415; 70450; 70544; 70551; 71010; 80053; 80061; 80307; 81003; 83036; 84484; 85025; 85610; 85730; 92610; 93005; 93306; 93880; 97161; 99291; G0378; G8978; G8979; G8980; G8996; G8997; G8998